=== PATIENT | male | born 1955 | race Caucasian/White ===

== ENCOUNTER 2018-07-02 19:56 | Emergency (ER) | payer OTHER, SELFPAY ==
[2018-07-02 19:58] VITALS: BP 149/102; PULSE 98; RESP 16; TEMP 36.6; O2SAT 99; BMI 31.6
--- NOTE | 2018-07-02 20:59 | ED.RN ---
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
--- NOTE | 2018-07-02 21:01 | CT_ITS ---
STUDY: CT BRAIN WITHOUT CONTRAST REASON FOR EXAM: Male, 63 years old. Headache, suicidal ideations. RADIATION DOSAGE (If Supplied By Facility): CTDIvol = ( 44.99 ) mGy, DLP = ( 812.98 ) mGycm TECHNIQUE: Transaxial CT imaging of the brain was performed without administration of intravenous contrast material. Individualized dose optimization techniques were used for this CT. COMPARISON: Noncontrast CT brain July 03, 2015. FINDINGS: Soft tissue densities in the occipital scalp are again noted, the largest measuring 15.5 x 11.5 x 16.5 mm. These may be sebaceous cyst or other soft tissue lesions. Normal calvarium. There is borderline cerebral atrophy with slight widening of the extra-axial spaces and ventricular dilatation. There are subtle areas of decreased attenuation within the white matter tracts of the supratentorial brain, consistent with microvascular disease changes. Normal basal ganglia and thalami. Focal low density in the medial left juncture of the midbrain and silke (series 2 image 16) may be an old lacunar infarct or volume averaging artifact. Normal cerebellum. There is no intracranial hemorrhage. There are no findings of an acute ischemic infarction. Normal visualized paranasal sinuses. There are are small accumulations of cerumen in the bilateral external auditory canals. CT/Brain/Head without Contrast IMPRESSION: Chronic microvascular ischemic changes of the brain. No acute intracranial pathology. Electronically Signed: Bakari Vaughn MD at 21:59 EDT , Service support ,
[2018-07-02] MEDS: Acetaminophen 325 MG Tablet 650 MG PO (21:16)
[2018-07-02] MEDS: LORazepam 1 MG Tablet PO (21:16)
[2018-07-02 21:20] LABS: Absolute Lymphocyte Count 1.39 X10^3/ul (0.83-4.51); Absolute Neutrophil Count 3.7 X10^3/uL (2.0-7.7); Basophil# 0.03 X10^3/uL; Basophil% 0.5 % (0-1); Eosinophils% 1.7 % (0-5); Hemoglobin 15.3 g/dl (13.0-16.5); Lymphocyte # 1.39 X10^3/ul (4.0); Lymphocyte % 23.8 % (19-41); Mean Corp Hgb Conc 35.6 g/gl (32-36); Mean Corpuscular Hgb 29.8 pg (27.0-32.0); Mean Corpuscular Volume 83.8 fL (80-94); Mean Platelet Vol. 12.2 fl (6.2-12.0); Monocyte# 0.61 X10^3/uL; Monocyte% 10.4 % (0-10); Neutrophil % 63.4 % (47-70); Platelet Count 214 K/mm3 (150-450); RBC Distribution Width CV 14.8 % (11.6-14.6); Red Blood Count 5.13 M/mm3 (4.6-6.2); White Blood Count 5.8 K/mm3 (4.4-11.0)
[2018-07-02 21:22] LABS: POSITIVE COUNT NO; POSITIVE DIFFERENTIAL NO; POSITIVE MORPHOLOGY NO
[2018-07-02 21:30] LABS: Alcohol, Blood (Medical)-Serum < 3.0 mg/dL
[2018-07-02 21:34] LABS: Anion Gap 5 (5-15); BUN 14 mg/dL (7-18); Calcium,Total 8.7 mg/dL (8.5-10.1); Chloride 110 mmol/L (98-107); Creatinine, Serum 0.88 mg/dL (0.70-1.30); EST Glomerular Filtration Rate 93 mL/min (>60); Est Glom Filt Rate - Afr Amer 112 mL/min (>60); Estimated Creatinine Clearance 78.24 ml/min; Glucose 108 mg/dL (74-106); Potassium 4.8 mmol/L (3.5-5.1); Sodium Level 140 mmol/L (136-145)
[2018-07-02 22:25] VITALS: BP 145/74; PULSE 81; RESP 18; O2SAT 100
[2018-07-02 23:04] VITALS: BP 134/73; PULSE 81; RESP 18; O2SAT 97
[2018-07-02 23:16] LABS: Amphetamine Urine VISTA NEGATIVE (<1000 ng/mL); Barbiturate Urine VISTA NEGATIVE (< 200 ng/mL); Benzodiazepine Urine VISTA NEGATIVE (< 200 ng/mL); Cocaine Urine VISTA NEGATIVE (< 300 ng/mL); Ecstacy Urine VISTA NEGATIVE (< 500 ng/mL); Methadone Urine VISTA NEGATIVE (< 300 ng/mL); PCP Urine VISTA NEGATIVE (< 25 ng/mL); THC Urine VISTA NEGATIVE (< 50 ng/mL); Vista UDS pH Range 6
--- NOTE | 2018-07-02 23:28 | ED.DCSUM_ITS ---
- ER Visit Summary Date of Service: 07/02/18 Chief Complaint: Suicidal History of Present Illness: The patient is a 63 M who reports he may be evicted from his home for having a certain pet. He states that this happens he feels he may hurt himself. He has thought about jumping in front of a moving vehicle, jumping from a building, or taking pills as an overdose. Patient states these feelings have been ongoing for the last week or so. He denies any prior attempts to harm himself. [facility] past as well as by a psychiatrist through the [facility]. Physical Examination: Vital signs gross unremarkable. Patient sitting upright in bed. He is intermittently tearful. Head neck examination unremarkable. Heart is regular rate and rhythm. Lung sounds are clear. Abdomen is soft nontender. Psychiatric evaluation reveals suicidal thoughts. He is depressed with a flat affect. Test Results: CBC is normal. Chemistry studies unremarkable. EtOH and tox normal. Head CT shows chronic microvascular ischemic changes. No evidence of acute pathology. Emergency Department Course and Treatment: Patient is given a dose of p.o. Ativan and a nicotine patch. He is given Tylenol for headache. At this time we are awaiting evaluation by crisis. Treatment Plan: [] Disposition: Pending crisis eval. Impression: 1. Suicidal ideation This note was generated with [employer] dictation software. It may contain incorrect words, spelling, and punctuation that were not noted in review of the chart prior to signing ED Disposition - Plan for ED Patient: Chief Complaint: Suicidal Referrals: Nik Shaw MD [Primary Care Provider] -
[2018-07-02] MEDS: Atorvastatin Calcium 20 MG Tablet PO (23:50)
[2018-07-02] MEDS: Amitriptyline 25 MG Tablet PO (23:50)
[2018-07-03] VITALS (8 sets, daily range): BP systolic 140–170; BP diastolic 72–80; PULSE 68–76; RESP 16–18; O2SAT 96–100
--- NOTE | 2018-07-03 03:53 | EKG12_ITS ---
Test Reason : MENTAL HEALTH Blood Pressure : / mmHG Vent. Rate : 066 BPM Atrial Rate : 066 BPM P-R Int : 144 ms QRS Dur : 090 ms QT Int : 404 ms P-R-T Axes : 024 -07 036 degrees QTc Int : 423 ms Normal sinus rhythm Minimal voltage criteria for LVH, may be normal variant Borderline ECG Confirmed by BARRETT CARRINGTON, CHRISTIE ([id number]), business editor PHIL ARANDA ([id number]) on 07/05/2018 1:26:09 PM Referred By: TAL Confirmed By:CHRISTIE HYDE MD
[2018-07-03] MEDS: Acetaminophen 500 MG Tablet 1000 MG PO (03:57)
[2018-07-03 04:19] LABS: Color, Urine Yellow (Yellow); Glucose, Dipstick Normal (Normal); Ketone-Dipstick 5 mg/dl (Negative); Leukocyte Esterase-Dipstick Negative /ul (Negative); Nitrite-Dipstick Negative (Negative); Occult Blood-Urine Negative /ul (Negative); Protein-Dipstick Negative (Negative); Urine Bilirubin Dipstick Negative (Negative); Urine Clarity Clear (Clear); Urine Urobilinogen Normal (Normal)
[2018-07-03 04:20] LABS: Bacteria 0 SEEN /hpf (None Seen); Mucous, Urine 0 SEEN /hpf (<or=2+); Red Blood Cells-Urine 0 SEEN /hpf (0-5); Squamous Epithelial Cells - UA 0 SEEN /hpf (0-5); White Blood Cells 0 SEEN /hpf (0-5)
[2018-07-03 04:35] LABS: AST(SGOT) 49 U/L (15-37); Alanine Aminotransfer ALT/SGPT 36 U/L (16-61); Albumin, Serum 3.7 g/dL (3.2-5.0); Alkaline Phosphatase 84 U/L (45-117); Globulin 3.3 g/dL (2.2-4.2)
[2018-07-03] MEDS: Acetaminophen 325 MG Tablet 650 MG PO (09:50)
--- NOTE | 2018-07-03 10:07 | ED.RN ---
ARIAS EARLY WITH CRISIS PATIENT HAS BEEN ACCEPTED AT [facility], THEY DO HAVE A BED BUT NOT ENOUGH STAFF. THEY WILL CALL WHEN THEY ARE READY FOR HIM.
--- NOTE | 2018-07-03 11:40 | ED.RN ---
NIMO AT [facility] WE ARE ALMOST READY BUT NOT QUITE YET, WE WILL GIVE YOU A CALL SHORTLY
== END 2018-07-03 13:42 ==
PROVIDERS: Emergency Medicine; Emergency Provider Emergency Medicine; Family Provider Family Medicine; PCP Family Medicine
DX: R45.851 Suicidal ideations (principal); J45.909 Unspecified asthma, uncomplicated; F41.9 Anxiety disorder, unspecified; F32.9 Major depressive disorder, single episode, unspecified; K21.9 Gastro-esophageal reflux disease without esophagitis; E03.9 Hypothyroidism, unspecified; Z86.73 Personal history of transient ischemic attack (TIA), and cerebral infarction without residual deficits; Z79.02 Long term (current) use of antithrombotics/antiplatelets; Z79.899 Other long term (current) drug therapy; Z72.0 Tobacco use
CPT/HCPCS: 70450; 80048; 80076; 80307; 80320; 81001; 85025; 93005; 99285; A4216; G0480

== ENCOUNTER → 2020-04-16 08:59 | Outpatient (CLI) | payer OTHER, SELFPAY ==
--- NOTE | 2020-04-16 09:10 | RAD_ITS ---
STUDY: X-RAY - ESOPHAGUS (BARIUM SWALLOW) WITH FLUOROSCOPY REASON FOR EXAM: Male, 65 years old. 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 FLUOROSCOPY TIME (if supplied): (1:44) minutes/seconds COMPARISON: None. FINDINGS: There is no demonstrated esophageal foreign body. There is evidence of a fungating mass in the hypopharynx just proximal to the origin of the esophagus. There is evidence of a prominence of the cricopharyngeus muscle. Normal gastroesophageal junction, without a demonstrated hiatal hernia. The patient was unable to swallow a 12 mm tablet of barium. Endoscopic correlation is recommended. There is atherosclerotic tortuosity of the aortic arch and descending thoracic aorta. Normal visualized pulmonary parenchyma. Normal visualized osseous structures of the thorax. RAD/Esophagus Dual Contrast IMPRESSION: I suspect a fungating mass in the distal hypopharynx just proximal to the origin of the esophagus. The patient was unable to swallow a 12 mm tablet of barium. Electronically Signed: Red Sykes, at 13:15 EDT , Service support ,
== END ==
LOC: RAD 09:03
PROVIDERS: PCP Family Medicine; Referring Provider Otolaryngology; Visit Provider Otolaryngology
DX: R13.10 Dysphagia, unspecified (principal)
CPT/HCPCS: 74221

== ENCOUNTER → 2020-04-24 08:22 | Outpatient (CLI) | payer OTHER, SELFPAY ==
--- NOTE | 2020-04-24 08:27 | CT_ITS ---
STUDY: CT SOFT TISSUE NECK WITH CONTRAST REASON FOR EXAM: Male, 65 years old. ESOPHAGEAL MASS, DIFFICULTY SWALLOWING, HX TONSILAR CANCER RADIATION DOSAGE (If Supplied By Facility): CTDIvol = ( 23.59 ) mGy, DLP = ( 993.95 ) mGycm TECHNIQUE: The patient was scanned in a multi-detector CT scanner. High resolution transaxial imaging was performed following intravenous administration of IV 75mL Isovue-370. Sagittal and coronal images were reconstructed. Individualized dose optimization techniques were used for this CT. COMPARISON: Comparison is made with prior study dated 08/14/2013. FINDINGS: There is circumferential wall thickening at the origin of the esophagus with narrowing of the lumen. Normal bilateral parotid glands. 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 Normal bilateral parapharyngeal spaces. Normal bilateral carotid spaces. Normal bilateral sublingual and submandibular glands and spaces. Normal visualized nasopharynx. Normal retropharyngeal space. Normal perivertebral space. Normal visualized bilateral faucial tonsils. The visualized tongue, tongue base and oropharynx are normal. There are minimally enlarged lymph nodes of the neck, with preservation of normal lucero architecture, consistent with a reactive lymph hyperplasia. There is no demonstrated solid or cystic mass lesion. There is no abnormal contrast enhancement. Normal epiglottis, bilateral vallecula and hypopharynx. The pre-epiglottic and paraglottic adipose spaces are normal. Normal visualized bilateral piriform sinuses, aryepiglottic folds, vocal cords, and arytenoid-cricoid articulations. Normal subglottic trachea. Normal bilateral lobes of the thyroid gland. Normal visualized pulmonary apices. Normal visualized paranasal sinuses. There is multilevel degenerative changes of the cervical spine. CT/Soft Tissue Neck WITH Contrast IMPRESSION: Circumferential wall thickening of the esophagus at its origin with narrowing of its lumen. Electronically Signed: Red Sykes, at 10:06 EDT , Service support ,
[2020-04-24 08:56] LABS: CREATININE FINGERSTICK 0.8 mg/dL (0.70-1.30)
== END ==
LOC: CT 08:22
PROVIDERS: PCP Family Medicine; Referring Provider Otolaryngology; Visit Provider Otolaryngology
DX: K22.9 Disease of esophagus, unspecified (principal)
CPT/HCPCS: 70491; Q9967

== ENCOUNTER 2021-07-14 19:11 | Emergency (ER) | payer OTHER, SELFPAY ==
[2021-07-14 19:12] VITALS: BP 199/93; PULSE 96; RESP 15; TEMP 36.6; O2SAT 100; BMI 25.3
[2021-07-14 20:07] LABS: Absolute Lymphocyte Count 0.22 X10^3/uL (0.83-4.51); Absolute Neutrophil Count 5.8 X10^3/uL (2.0-7.7); Basophil# 0.03 X10^3/uL; Basophil% 0.5 % (0-1); Eosinophils% 1.6 % (0-5); Hematocrit 33.5 % (40-54); Hemoglobin 10.5 g/dL (13.0-16.5); Lymphocyte # 0.22 X10^3/ul (0.83-4.51); Lymphocyte % 3.5 % (19-41); Mean Corp Hgb Conc 31.3 g/dL (32-36); Mean Corpuscular Hgb 25.2 pg (27.0-32.0); Mean Corpuscular Volume 80.3 fL (80-94); Mean Platelet Vol. 10.4 fl (6.2-12.0); Monocyte# 0.03 X10^3/uL; Monocyte% 0.5 % (0-10); NRBC Flagged by Analyzer 0 % (0-5); Neutrophil # 5.83 X10^3/uL (2.7-7.7); Neutrophil % 93.7 % (47-70); POSITIVE DIFFERENTIAL YES; POSITIVE MORPHOLOGY YES; Platelet Count 452 K/mm3 (150-450); RBC Distribution Width CV 15.9 % (11.6-14.6); RBC Distribution Width SD 46.1 fl (35.1-43.9); Red Blood Count 4.17 M/mm3 (4.6-6.2); White Blood Count 6.2 K/mm3 (4.4-11.0)
[2021-07-14 20:15] LABS: Differential Indicated SCAN CRITERIA MET
--- NOTE | 2021-07-14 20:19 | CT_ITS ---
INDICATION: abd pain post op EXAMINATION: CT ABDOMEN AND PELVIS WITH CONTRAST - CT Abdomen And Pelvis W/ Contrast Injection TECHNIQUE: Helically acquired images were obtained of the abdomen and pelvis following IV contrast. A radiation dose optimization technique was used for this scan. IV Contrast dosage and agent: 100 mL of ISOVUE-370 Oral contrast: None. COMPARISON: Chest x-ray 07/14/2021 FINDINGS: LOWER CHEST: Early paraseptal emphysematous changes are suggested. No cardiomegaly or pericardial effusion. LIVER: Homogeneous. No focal mass. GALLBLADDER AND BILIARY TREE: No calcified gallstones. No gallbladder distension or wall edema. No intra- or extrahepatic biliary ductal dilation. PANCREAS: No focal cystic or solid mass. Mild fatty replacement. SPLEEN: Normal size without focal cystic or solid mass. ADRENAL GLANDS: No nodules. KIDNEYS AND URETERS: Normal renal size and position. Mild dilation and mural enhancement mid distal ureters, left greater than right. There is also mild bilateral caliectasis, right greater than left. Subcentimeter hypodensity is seen in the right upper pole and right mid kidney. This is too small to coffee-like characterize however most likely represents a cyst. PERITONEUM: No ascites or free air. No other fluid collection. BOWEL: No evidence of acute appendicitis. Stomach is mildly distended with fluid. There is a roughly 1 cm oval-shaped calcification in the posterior dependent aspect of the stomach body versus potentially within the stomach wall. No focal inflammatory change. LYMPH NODES: No enlarged mesenteric or retroperitoneal lymph nodes. VESSELS: Moderate atherosclerotic changes abdominal aorta with mild narrowing from next soft tissue and calcified plaque distal abdominal aorta and proximal iliac vessels. The right external iliac artery is unopacified for a roughly 5 cm segment likely representing URINARY BLADDER: There is a BARNES catheter. Bladder shows irregular mural thickening and surrounding stranding density and a small amount of fluid in the pelvis. The stranding density is most notable adjacent to the left ureter the level of the origin of the internal iliac arteries. REPRODUCTIVE ORGANS: No pelvic masses. ABDOMINAL WALL: Air skin thickening left lower abdomen anterior abdominal wall may represent possible mass. Clinical correlation is recommended. Focal area of subcutaneous fat stranding density adjacent to the umbilicus and right and left lower abdomen may represent trocar sites for laparoscopic surgery. Correlate clinically. Bilateral, moderate-sized, fat filled inguinal hernias are present. BONES: No lytic or blastic abnormality. Left pectineus intramuscular mass lesion showing both fat and soft tissue density. Circumscribed lesion with mostly nonaggressive appearance. CT/Abdomen/Pelvis W IV Cont ONLY IMPRESSION: Occluded right external iliac artery. Reconstitution of flow femoral artery. Abnormal bladder wall thickening and hazy margins with adjacent inflammatory changes. Scarlike stranding density on the course of the left ureter at the level of the left internal iliac artery. Mild bilateral hydronephrosis and some mural enhancement of the ureters suggesting infectious or inflammatory changes. Early emphysematous changes seen in the lung bases. Oval-shaped hyperdensity in the dependent aspect of the stomach is less likely in the stomach wall. Postsurgical changes anterior, abdominal wall. Areas of oval-shaped skin thickening suspicious for possible mass left lower quadrant. Bilateral inguinal hernias. Left pectineus muscle fatty mass but also with apparent hypodense, solid component. This may represent a cystic component. Given this complexity. Comparison with MRI is recommended. Electronically Signed: Dominick Campos DO at 22:08 EDT Tel , Service support ,
--- NOTE | 2021-07-14 20:19 | EKG12_ITS ---
Test Reason : ABD PAIN Blood Pressure : / mmHG Vent. Rate : 117 BPM Atrial Rate : 117 BPM P-R Int : 128 ms QRS Dur : 078 ms QT Int : 348 ms P-R-T Axes : 039 027 038 degrees QTc Int : 485 ms Sinus tachycardia Nonspecific ST-Segment abnomality Confirmed by BARRETT CARRINGTON, CHRISTIE ([id number]), proposal editor SHEY ROJAS ([id number]) on 07/16/2021 8:58:20 AM Referred By: JAC Confirmed By:CHRISTIE HYDE MD
[2021-07-14 20:24] LABS: ALB/GLOB Ratio 0.9 RATIO (0.9-2.4); AST(SGOT) 13 U/L (15-37); Alanine Aminotransfer ALT/SGPT 18 U/L (16-61); Albumin, Serum 3.5 g/dL (3.2-5.0); Alkaline Phosphatase 131 U/L (45-117); Anion Gap 7 (5-15); BUN 18 mg/dL (7-18); BUN/Creat Ratio 15.7 RATIO (10-20); Calcium,Total 9.3 mg/dL (8.5-10.1); Chloride 109 mmol/L (98-107); Creatinine, Serum 1.15 mg/dL (0.70-1.30); EST Glomerular Filtration Rate 67 mL/min (>60); Est Glom Filt Rate - Afr Amer 81 mL/min (>60); Estimated Creatinine Clearance 57.48 ml/min; Globulin 3.9 g/dL (2.2-4.2); Glucose 140 mg/dL (74-106); Potassium 3.6 mmol/L (3.5-5.1); Protein, Total 7.4 g/dL (6.4-8.2); Sodium Level 141 mmol/L (136-145)
--- NOTE | 2021-07-14 20:24 | EDS_ITS ---
HPI History of Present Illness Chief Complaint: Abd Pain Informant: patient and spouse/S.O. Narrative Narrative: It is a little hard to get the details of what is going on from the patient. His states he is a little bit confused. This does make the evaluation difficult. The below summary is the best of the details that I am able to obtain. This patient has had about 2 days of not feeling well. It sounds like he feels chilled but has not had a fever. He has some back pain but he states that is chronic and is worse depending on how he lays. He has some mild abdominal discomfort but he is not sure where it is. He has had new hematuria in his Lambert. It sounds like he has not had a cough. He has not had chest pain. He has had decreased appetite and now vomited evidently today. No blood. Patient did just have surgery 2 weeks ago for prostatectomy. This was done through laparoscopy. It evidently went well. He has had a catheter in ever since. He was due to have the catheter out tomorrow. Nothing specifically makes his symptoms better or worse. His states that he is a little confused and thinks he has been having fevers. PFSH PFSH Home Medications clopidogrel 75 mg PO DAILY 03/30/15 [History Last Taken Unknown] fluticasone propionate 2 spray NASAL DAILY 03/30/15 [History Last Taken Unknown] lorazepam 0.5 mg PO Q6H PRN 03/30/15 [History Last Taken Unknown] meloxicam 15 mg PO DAILY 03/30/15 [History Last Taken Unknown] multivitamin with folic acid [Thera] 1 tab PO DAILY 03/30/15 [History Last Taken Unknown] polyethylene glycol 3350 17 g PO DAILY 03/30/15 [History Last Taken Unknown] Levothyroxine Sodium 112 mcg PO DAILY 07/02/18 [History Last Taken Unknown] amitriptyline 1 tab PO DAILY 07/02/18 [History Last Taken Unknown] omeprazole 20 mg PO DAILY 07/02/18 [History Last Taken Unknown] oxybutynin chloride [Ditropan XL] 1 tab PO DAILY 07/02/18 [History Last Taken Unknown] simvastatin 1 tab PO DAILY 07/02/18 [History Last Taken Unknown] docusate sodium [Colace] 50 mg PO BID 07/14/21 [History Last Taken Unknown] Allergy/AdvReac Type Severity Reaction Status Date / Time bupropion HCl AdvReac Unknown Verified 07/14/21 19:15 [From Wellbutrin] Penicillins AdvReac Rash Verified 07/14/21 19:15 Sulfa (Sulfonamide AdvReac Rash Verified 07/14/21 19:15 Antibiotics) Social History Smoking Status: Current every day smoker tobacco type: cigarettes ROS ROS ED Constitutional Constitutional ED: Reports subjective Eyes Eyes: Denies blurry vision or change in vision ENT ENT ED: Denies ear pain, rhinorrhea or sore throat Cardiovascular Cardiovascular: Denies chest pain or palpitations Respiratory/Chest Respiratory/Chest: Denies cough, dyspnea or sputum Gastrointestinal Gastrointestinal: Reports abdominal pain, nausea, vomiting and other Details: Triage note mentions constipation and frequent bowel motions but patient's not saying this at this time. This might be due to some mild confusion. He ; Denies constipation, diarrhea or melena Genitourinary Genitourinary ED: Reports hematuria; Denies dysuria Musculoskeletal Musculoskeletal: Reports myalgias Integumentary Denies rash Neurologic Neurologic: Reports other Details: Mild global confusion. However, when he focuses he is able to tell me most of his meds and past history a piece at a time. ; Denies headache(s), paresthesias or weakness Psychiatric Psychiatric: Denies anxiety Endocrine Endocrinology: Denies polydipsia or polyuria Allergic/Immunologic Allergic/Immunologic ED: Denies mouth swelling or urticaria EXAM Physical Exam Const Vital Signs: 07/14/21 19:12 07/14/21 20:48 07/14/21 21:56 Temperature 97.8 F 99.3 F H 99.1 F Temperature Source Temporal Oral Temporal Pulse Rate 96 110 H 74 Respiratory Rate 15 22 H 17 Blood Pressure 199/93 H 136/50 H 165/69 H Blood Pressure Mean 128 78 101 Pulse Ox 100 98 98 Oxygen Delivery Method Room Air Room Air Room Air 07/14/21 22:02 07/14/21 22:50 Temperature 100.7 F H Temperature Source Oral Pulse Rate 112 H Respiratory Rate 27 H 24 H Blood Pressure 153/72 H Blood Pressure Mean 99 Pulse Ox 97 Oxygen Delivery Method Room Air Patient looks mildly agitated. He states he is cold. Even during the exam he will pull the blankets up while examining him. We are able to get a decent exam though. He is alert and oriented. But he has little trouble focusing. He seems uncomfortable. He does seem to be chilling but does not feel warm to me. Positive well nourished and well developed General Appearance ED: well developed HEENT Reports dry mucous membranes Negative for trauma Mouth ED: Yes dry mucous membranes Mouth: dry mucous membranes Eyes General Eye ED: Negative for pale conjunctiva or scleral icterus Neck no JVD Chest Wall inspection of chest normal Resp normal respiratory effort and clear to auscultation bilaterally Auscultation: Negative for rales, rhonchi or wheezes Cardio regular rate, regular rhythm and no murmurs GI GI Narrative: Abdomen is soft nontender. Prior scope sites look well-healed. Abdomen seems almost a little bit distended. There is no focal tenderness that I can get on exam. Lambert is in place. Narrative: Lambert is in place. There is blood in his catheter bag. I do not see clots. Back/Spine Negative for no CVA tenderness Back/Spine Narrative: I tried to localize the pain on the patient's back but he just cannot tell me where it is. I tried to tell him if it is higher or lower than I am touching and he states he is just not sure. He does ask for a pillow because that usually helps his back. General Back: Negative for CVA tenderness Extremity normal to inspection General Extremety ED: Negative for tenderness Neuro oriented x3 Neuro Narrative: He is technically oriented x3. However he does seem preoccupied and not focused well. This might be due to discomfort or the chills. Sensorium / Orientation: alert Skin no rashes or lesions noted MDM MDM MDM Narrative Medical decision making narrative: Patient's white count is not elevated. His hemoglobin is a bit low at 10.5. However he just had surgery recently. His catheter is irrigated. It is coming out pink but much better. No gross blood now. Electrolytes show normal creatinine. Glucose is slightly elevated 140. LFTs show no marked abnormalities. Troponin is negative. Lipase is normal. Lactate is 2.0. Urine does show strong signs of infection. It is cloudy with greater 100 white cells. Positive leukocyte Estrace. CT scan of the abdomen does show signs of inflammatory changes around the bladder and the ureter mostly on the left. This is consistent with Luis. It also shows an area in the left lower quadrant but clinically he has a small lump of the tissue there that does not look infected or inflamed or herniated. X-ray of the chest is negative. This patient does feel febrile now. He has some mild confusion per his . He has had nausea and vomiting. I do not think this is a patient who would do well as an outpatient. I have hospitalist on page to discuss the possibility of admitting him here. We are giving him a bit more fluids. His blood pressure is good but his heart rate is up at about 110. Saturations are still normal at 98% on room air. We discussed the possibility of coming in here. The concern is were not having urology coverage at this time. Patient also was postop from [facility]. I did call [facility]. It sounds like they likely do have a bed available. We have sent information to them. I have given them the history, presentation, exam, labs, CT findings as well as x-ray. We have sent a facesheet to them. I am awaiting a call back for admission. Patient is excepted to room 5107 at [facility] by Dr. Olivier Mendez. Lab Data Attestation: I reviewed the patient's lab results. Labs: Laboratory Results - last 24 hr 07/14/21 07/14/21 07/14/21 19:54 19:54 20:49 WBC 6.2 RBC 4.17 L Hgb 10.5 L Hct 33.5 L MCV 80.3 MCH 25.2 L MCHC 31.3 L RDW Std Deviation 46.1 H RDW Coeff of Evelyn 15.9 H Plt Count 452 H MPV 10.4 Immature Gran % (Auto) 0.200 Neut % (Auto) 93.7 H Lymph % (Auto) 3.5 L Adams % (Auto) 0.5 Eos % (Auto) 1.6 Baso % (Auto) 0.5 Absolute Neuts (auto) 5.8 Absolute Lymphs (auto) 0.22 L Nucleated RBC % 0 Differential Comment SCANNED Sodium 141 Potassium 3.6 Chloride 109 H Carbon Dioxide 25.0 Anion Gap 7 BUN 18 Creatinine 1.15 Estim Creat Clear Calc 57.48 Est GFR (MDRD) Af Amer 81 Est GFR (MDRD) Non-Af 67 BUN/Creatinine Ratio 15.7 Glucose 140 H Lactic Acid Calcium 9.3 Total Bilirubin 0.40 AST 13 L ALT 18 Alkaline Phosphatase 131 H Troponin I High Sens 5 Total Protein 7.4 Albumin 3.5 Globulin 3.9 Albumin/Globulin Ratio 0.9 Lipase 66 L Urine Color Urine Clarity Urine pH Ur Specific [place] Urine Protein Urine Glucose (UA) Urine Ketones Urine Occult Blood Urine Nitrite Urine Bilirubin Urine Urobilinogen Ur Leukocyte Esterase Urine RBC Urine WBC Ur Squamous Epith Cells Urine Bacteria Urine Mucus 07/14/21 07/14/21 20:49 21:38 WBC RBC Hgb Hct MCV MCH MCHC RDW Std Deviation RDW Coeff of Evelyn Plt Count MPV Immature Gran % (Auto) Neut % (Auto) Lymph % (Auto) Adams % (Auto) Eos % (Auto) Baso % (Auto) Absolute Neuts (auto) Absolute Lymphs (auto) Nucleated RBC % Differential Comment Sodium Potassium Chloride Carbon Dioxide Anion Gap BUN Creatinine Estim Creat Clear Calc Est GFR (MDRD) Af Amer Est GFR (MDRD) Non-Af BUN/Creatinine Ratio Glucose Lactic Acid 2.0 Calcium Total Bilirubin AST ALT Alkaline Phosphatase Troponin I High Sens Total Protein Albumin Globulin Albumin/Globulin Ratio Lipase Urine Color Brown Urine Clarity Cloudy Urine pH 6.5 Ur Specific [place] 1.015 Urine Protein 500 H Urine Glucose (UA) Normal Urine Ketones 15 H Urine Occult Blood 250 H Urine Nitrite Negative Urine Bilirubin Negative Urine Urobilinogen Normal Ur Leukocyte Esterase 500 H Urine RBC > 100 SEEN Urine WBC >100 SEEN Ur Squamous Epith Cells 0 SEEN Urine Bacteria 0 SEEN Urine Mucus 0 SEEN Radiography Diagnostic Testing: Clinical Impression(s) from Imaging Studies Abdomen/Pelvis CT 07/14/21 20:19 IMPRESSION: Occluded right external iliac artery. Reconstitution of flow femoral artery. Abnormal bladder wall thickening and hazy margins with adjacent inflammatory changes. Scarlike stranding density on the course of the left ureter at the level of the left internal iliac artery. Mild bilateral hydronephrosis and some mural enhancement of the ureters suggesting infectious or inflammatory changes. Early emphysematous changes seen in the lung bases. Oval-shaped hyperdensity in the dependent aspect of the stomach is less likely in the stomach wall. Postsurgical changes anterior, abdominal wall. Areas of oval-shaped skin thickening suspicious for possible mass left lower quadrant. Bilateral inguinal hernias. Left pectineus muscle fatty mass but also with apparent hypodense, solid component. This may represent a cystic component. Given this complexity. Comparison with MRI is recommended. Electronically Signed: Dominick Campos DO at 22:08 EDT Tel , Service support , Chest X-Ray 07/14/21 20:30 IMPRESSION: Normal x-ray examination of the chest. Electronically Signed: Michael Hassan MD at 21:04 EDT Tel , Service support , EKG Initial EKG: Comments: EKG done as part of medical work-up and mild tachycardia. EKG read by me shows a sinus rhythm with tachycardic rate. No ventricular ectopy. There is some mild nonspecific ST and T wave changes. No sign of infarct or ischemia. MD interval, QRS duration are normal. QTc is toward the high end at 45. Discharge Plan Triage Chief Complaint: Abd Pain ED Provider: Kyree Peterson Dx/Rx/DC Orders Clinical Impression: Pyelonephritis Prescriptions: No Action polyethylene glycol 3350 17 GM powder in packet 17 g PO DAILY RF: 0 meloxicam 15 MG tablet 15 mg PO DAILY RF: 0 clopidogrel 75 MG tablet 75 mg PO DAILY RF: 0 lorazepam 0.5 MG tablet 0.5 mg PO Q6H PRN (Reason: Anxiety) RF: 0 fluticasone propionate 1 SPRAY spray,suspension 2 spray NASAL DAILY RF: 0 multivitamin with folic acid [Thera] 1 TABLET tablet 1 tab PO DAILY RF: 0 oxybutynin chloride [Ditropan XL] 10 MG tablet extended release 24hr 1 tab PO DAILY RF: 0 simvastatin 80 MG tablet 1 tab PO DAILY RF: 0 amitriptyline 25 MG tablet 1 tab PO DAILY RF: 0 omeprazole 20 MG capsule 20 mg PO DAILY RF: 0 Levothyroxine Sodium 112 MCG tablet 112 mcg PO DAILY RF: 0 Colace 50 mg Capsule 50 mg PO BID RF: 0 Primary Care Provider: Nik Shaw Referrals: Nik Shaw MD [Primary Care Provider] -
--- NOTE | 2021-07-14 20:30 | RAD_ITS ---
STUDY: X-RAY CHEST REASON FOR EXAM: Male, 66 years old. fever TECHNIQUE: Frontal portable view of the chest COMPARISON: 17 December 2015 FINDINGS: The lungs are clear and expanded. There is no demonstrated pleural abnormality. Normal size heart. Normal mediastinum and enrico. Normal visualized pulmonary arteries. Normal visualized aortic arch and descending thoracic aorta. Normal visualized thoracic spine. Normal visualized ribs, clavicles, and shoulders. There is no demonstrated abnormality of the visualized soft tissue structures of the upper abdomen. RAD/Chest 1 View (Portable) IMPRESSION: Normal x-ray examination of the chest. Electronically Signed: Michael Hassan MD at 21:04 EDT Tel , Service support ,
[2021-07-14] MEDS: Morphine 4 MG/ML Syringe IV (20:43)
[2021-07-14] MEDS: 0.9% Normal Saline 1,000 ML 1000 ML IV (20:43)
[2021-07-14] MEDS: Ondansetron 4 MG/2 ML Vial IV (20:43)
[2021-07-14 20:48] VITALS: BP 136/50; PULSE 110; RESP 22; TEMP 37.4; O2SAT 97; O2SAT 98
[2021-07-14] MEDS: levoFLOXacin IV 750 MG/150 ML BAG 100 MG IV (20:48)
[2021-07-14 20:49] LABS: Differential Comment SCANNED
[2021-07-14 21:28] LABS: Lipase 66 U/L (73-393); Troponin-I HS 5 pg/mL (3.0-78.0)
[2021-07-14 21:49] LABS: Bacteria 0 SEEN /hpf (None Seen); Mucous, Urine 0 SEEN /hpf (<or=2+); Squamous Epithelial Cells - UA 0 SEEN /hpf (0-5)
[2021-07-14 21:52] LABS: Color, Urine Brown (Yellow); Glucose, Dipstick Normal (Normal); Ketone-Dipstick 15 mg/dl (Negative); Leukocyte Esterase-Dipstick 500 /ul (Negative); Nitrite-Dipstick Negative (Negative); Occult Blood-Urine 250 /ul (Negative); Protein-Dipstick 500 mg/dl (Negative); Specific Gravity, Urine 1.015 (1.002-1.030); Urine Bilirubin Dipstick Negative (Negative); Urine Clarity Cloudy (Clear); Urine Urobilinogen Normal (Normal); Urine pH 6.5 (5.0 - 8.0)
[2021-07-14 21:56] VITALS: BP 165/69; PULSE 74; RESP 17; TEMP 37.3; O2SAT 98
[2021-07-14 22:02] VITALS: RESP 27
[2021-07-14 22:03] LABS: Red Blood Cells-Urine > 100 SEEN /hpf (0-5); White Blood Cells >100 SEEN /hpf (0-5)
[2021-07-14] MEDS: 0.9% Normal Saline 1,000 ML 999 ML IV (22:49)
[2021-07-14 22:50] VITALS: BP 153/72; PULSE 112; RESP 24; TEMP 38.2; O2SAT 97
[2021-07-14] MEDS: Acetaminophen 500 MG Tablet 1000 MG PO (23:42)
[2021-07-14 23:56] VITALS: BP 118/62; PULSE 107; RESP 26; TEMP 38.2; O2SAT 97
[2021-07-15 00:54] LABS: Reflex Lactate? Y
--- NOTE | 2021-07-15 06:46 | ED.RN ---
RESULT OF POSITIVE BLOOD CULTURES CALLED TO [address] [place] [address] TO [facility]. THIS RESULT WAS FAXED TO FACILITY [phone]
== END 2021-07-15 00:05 ==
PROVIDERS: Emergency Provider Emergency Medicine; PCP Family Medicine
DX: N12 Tubulo-interstitial nephritis, not specified as acute or chronic (principal); Z96.0 Presence of urogenital implants; Z90.79 Acquired absence of other genital organ(s); F17.210 Nicotine dependence, cigarettes, uncomplicated
CPT/HCPCS: 71045; 74177; 80053; 81001; 83605; 83690; 84484; 85025; 87040; 87077; 87186; 87426; 93005; 96361; 96365; 96366; 96375; 99285; J7030; Q9967; A4216; J2405

== ENCOUNTER 2024-10-30 14:45 | Emergency (ER) | payer OTHER, SELFPAY ==
[2024-10-30 14:47] VITALS: BP 128/65; PULSE 90; RESP 16; TEMP 36.6; O2SAT 100
[2024-10-30 14:50] VITALS: BMI 28.6
[2024-10-30 16:00] VITALS: O2SAT 100
--- NOTE | 2024-10-30 16:13 | EDS_ITS ---
HPI History of Present Illness Chief Complaint: Cough PFSH [facility] Medical History (Updated 10/30/24 @ 15:58 by Grisel Bethea) High blood cholesterol GERD (gastroesophageal reflux disease) Depression Stroke Parkinsons disease Throat cancer Home Medications ?Medication ?Instructions ?Recorded ?Last Taken ?Type clopidogrel 75 mg tablet 75 mg PO DAILY 03/30/15 Unkn own History fluticasone propionate 50 2 spray DAILY 03/30/15 Unkno wn History mcg/actuation nasal spray,suspension lorazepam 0.5 mg tablet 0.5 mg PO Q6H PRN Anxiety Unknown History meloxicam 15 mg tablet 15 mg PO DAILY 03/30/15 Unkn own History multivitamin with folic acid 400 1 tab PO DAILY Unknown History mcg tablet (Thera) polyethylene glycol 3350 17 gram 17 g PO DAILY 5 Unknown History oral powder packet Levothyroxine Sodium 112 mcg PO DAILY 07/02/18 Un known History amitriptyline 25 mg tablet 1 tab PO DAILY 07/02/18 Unk nown History omeprazole 20 mg capsule,delayed 20 mg PO DAILY Unknown History release oxybutynin chloride 10 mg 1 tab PO DAILY 07/02/18 Unkn own History tablet,extended release 24 hr (Ditropan XL) simvastatin 80 mg tablet 1 tab PO DAILY 07/02/18 Unkn own History docusate sodium 50 mg capsule 50 mg PO BID 07/14/21 Un known History Allergy/AdvReac Type Severity Reaction Status Date / Time bupropion HCl (From AdvReac Unknown Verified 10/30/24 14:47 Wellbutrin) Penicillins AdvReac Rash Verified 10/30/24 14:47 Sulfa (Sulfonamide AdvReac Rash Verified 10/30/24 14:47 Antibiotics) Surgical History (Updated 10/30/24 @ 15:57 by Grisel Bethea) History of prostate surgery Social History Smoking Status: Heavy Smoker (>10/day) EXAM Physical Exam Const Vital Signs: 10/30/24 14:47 10/30/24 16:00 10/30/24 16:46 Temperature 98 F Temperature Source Oral Pulse Rate 90 84 Respiratory Rate 16 17 Respiratory Effort Normal Blood Pressure 128/65 H 161/77 H Blood Pressure Mean 86 105 Pulse Ox 100 96 Oxygen Delivery Method Room Air Room Air Room Air 10/30/24 18:00 Temperature Temperature Source Pulse Rate 64 Respiratory Rate 11 L Respiratory Effort Blood Pressure 170/82 H Blood Pressure Mean 111 Pulse Ox 99 Oxygen Delivery Method Room Air [facility] Narrative Medical decision making narrative: HISTORY OF PRESENT ILLNESS: 69-year-old male presents with concern for cough Patient notes he is been coughing a minor amount of bright red mucus for 2 days. Notes he has history of throat cancer radiation. He notes he has had chemo proximally 4 years ago. Denies chest pain, shortness of breath. Denies fever or chills. Denies feeling ill. Does note some pain in his throat that began 2 days ago as well. Denies any drooling, difficulty talking. Denies any neck pain or stiffness. REVIEW OF SYSTEMS: Pertinent positives: Cough, hemoptysis Pertinent negatives: Chest pain, leg swelling PHYSICAL EXAM: Nursing triage notes reviewed, Vital signs reviewed Constitutional: please see [facility] HENT: MMM Eyes: Pupils equal round and reactive to light, Extraocular muscles intact Neck: No stridor, no JVD, full neck ROM Lungs: Clear to auscultation, No wheezing or rales. No increased work of breathing, no conversational dyspnea, no accessory muscle use, no nasal flaring. No respiratory distress noted Heart: Regular rate and rhythm, No murmurs, No rubs and No gallops, 2+ distal pulses (radial, femoral, posterior tibial) in all extremities Abdomen: Soft, there is no tenderness, rigidity, rebound or guarding, no obvious peritoneal signs, no palpable pulsatile abdominal masses, no auscultated abdominal bruit : No CVAT Extremities: No edema Neuro: No new focal neurological deficits, cranial nerves II through XII intact, 5/5 strength in all present extremities. Intact sensation to light touch in all present extremities, 2+ reflexes bilateral patella tendons. Skin: No rash or lesions noted MEDICAL DECISION MAKING: Chief Complaint: Cough, hemoptysis External records reviewed: Reviewed allergies, reviewed prior imaging Factors affecting care: GERD, depression, CVA, Parkinson disease, throat cancer Social determinants of health: none History obtained from others: none Consults: none [facility] Narrative: Patient was initially hemodynamically stable, afebrile and nontoxic-appearing. Exam unremarkable. No stridor. I considered the following differential diagnosis: Mucosal irritation of the throat secondary to radiation-induced changes, ALL IMAGES (IF OBTAINED) HAVE BEEN PERSONALLY REVIEWED AND INTERPRETED BY MYSELF. CBC without leukocytosis, severe anemia, no thrombocytopenia. BMP without evidence of significant electrolyte abnormalities, no anion gap, no acute kidney injury. High-sensitivity troponin is negative, no evidence of myocardial ischemia EKG with normal sinus rhythm rate of 78, left ax deviation, no murmurs, no STEMI Strep swab negative CT of the chest negative for PE CTA of the neck negative for mass The cause of the patient's presentation is unclear. Could be mucosal irritation. No indication for admission at this time. Encourage close outpatient follow-up. The patient and/or family, caregivers express understanding. The patient and/or family, caregivers agrees with the plan. Shared decision making: I will have a discussion with the patient and or visitors regarding risk/benefits of further testing or admission. They will be made aware of of the risk/benefits inherent in this decision they will be given the opportunity to voice understanding. Total critical care time today provided was at least 0 minutes. This excludes separately billable procedures. Critical care time (if documented) is secondary to the patient having high probability of clinically significant/life threatening deterioration in the patient's condition which required my urgent intervention. Impression: 1. Hemoptysis 2. History of throat cancer Dispo: Discharge home This note was generated with [employer] dictation software. It may contain incorrect words, spelling, and punctuation that were not noted in review of the chart prior to signing. Lab Data Labs: Laboratory Results - last 24 hr 10/30/24 16:50 WBC 10.2 RBC 5.41 Hgb 15.6 Hct 46.5 MCV 86.0 MCH 28.8 MCHC 33.5 RDW Std Deviation 45.2 H RDW Coeff of Evelyn 14.5 Plt Count 264 MPV 10.4 Sodium 142 Potassium 3.7 Chloride 107 Carbon Dioxide 29.0 Anion Gap 5 BUN 19 H Creatinine 0.82 Estim Creat Clear Calc 85.10 Est GFR (MDRD) Af Amer 120 Est GFR (MDRD) Non-Af 99 BUN/Creatinine Ratio 23.3 H Glucose 85 Calcium 9.8 Troponin I High Sens 17 Radiography Diagnostic Testing: Clinical Impression(s) from Imaging Studies Chest CTA 10/30/24 17:14 IMPRESSION: 1. Mild diffuse emphysematous changes 2. Mild pericardial effusion One or more dose reduction techniques were used (e.g., Automated exposure control, adjustment of the mA and/or kV according to patient size, use of iterative reconstruction technique). [facility] Neck CT 10/30/24 17:14 IMPRESSION: No acute or significant abnormality in the soft tissues of the neck One or more dose reduction techniques were used (e.g., Automated exposure contro l, adjustment of the mA and/or kV according to patient size, use of iterative reconstruction technique). Reading Location: [facility] Discharge Plan Triage Chief Complaint: Cough ED Provider: Pk Wolf Dx/Rx/DC Orders Prescriptions: No Action polyethylene glycol 3350 17 GM powder in packet 17 g PO DAILY meloxicam 15 MG tablet 15 mg PO DAILY clopidogrel 75 MG tablet 75 mg PO DAILY lorazepam 0.5 MG tablet 0.5 mg PO Q6H PRN (Reason: Anxiety) fluticasone propionate 1 SPRAY spray,suspension 2 spray NASAL DAILY multivitamin with folic acid [Thera] 1 TABLET tablet 1 tab PO DAILY oxybutynin chloride [Ditropan XL] 10 MG tablet extended release 24hr 1 tab PO DAILY simvastatin 80 MG tablet 1 tab PO DAILY Patient Comments: TAKE 1 TABLET AT BEDTIME amitriptyline 25 MG tablet 1 tab PO DAILY Patient Comments: Take 1 tablet by mouth daily at bedtime. omeprazole 20 MG capsule 20 mg PO DAILY Levothyroxine Sodium 112 MCG tablet 112 mcg PO DAILY Colace 50 mg Capsule 50 mg PO BID Primary Care Provider: Nik Shaw Referrals: Nik Shaw MD [Primary Care Provider] - Print Language: Prydeinig
[2024-10-30 16:46] VITALS: BP 161/77; PULSE 84; RESP 17; O2SAT 96
[2024-10-30 16:56] LABS: Hematocrit 46.5 % (40-54); Hemoglobin 15.6 g/dL (13.0-16.5); Mean Corp Hgb Conc 33.5 g/dL (32-36); Mean Corpuscular Hgb 28.8 pg (27.0-32.0); Mean Platelet Vol. 10.4 fl (6.2-12.0); Platelet Count 264 K/mm3 (150-450); RBC Distribution Width CV 14.5 % (11.6-14.6); RBC Distribution Width SD 45.2 fl (35.1-43.9); Red Blood Count 5.41 M/mm3 (4.6-6.2); White Blood Count 10.2 K/mm3 (4.4-11.0)
--- NOTE | 2024-10-30 17:14 | CT_ITS ---
PROCEDURE: CTA CHEST W/WO CONTRAST REASON FOR EXAM: Hemoptysis TECHNIQUE: CTA imaging of the chest with intravenous contrast and 3D reconstructions. CT imaging of the abdomen and pelvis using the same intravenous contrast dose. IV CONTRAST: COMPARISON: None. FINDINGS: CHEST CTA: Hardware: None. Lymph nodes: No mediastinal hilar or axillary lymphadenopathy. Heart: Mild pericardial effusion. No cardiomegaly. Mild coronary artery calcifications RV/LV Diameter Ratio: N/A Thoracic Aorta: No thoracic aortic aneurysm or dissection. Pulmonary Vessels: No large central pulmonary emboli are identified. Contrast timing is suboptimal for evaluation of more distal branches. Most Proximal Level of Embolus (if embolus present): N/A Lungs and Airways: Mild emphysematous changes are present. Pleura: No pleural effusion. No pneumothorax. Hernia: Small hiatal hernia Bones: Bone windows are unremarkable. CT/CTA Chest W/WO Contrast IMPRESSION: 1. Mild diffuse emphysematous changes 2. Mild pericardial effusion One or more dose reduction techniques were used (e.g., Automated exposure contr ol, adjustment of the mA and/or kV according to patient size, use of iterative reconstruction technique). Reading Location: [facility]
--- NOTE | 2024-10-30 17:14 | CT_ITS ---
PROCEDURE: SOFT TISSUE NECK WITH CONTRAST REASON FOR EXAM: Throat pain, history of throat cancer TECHNIQUE: CT of the soft tissues of the neck from the orbits to the upper mediastinum with intravenous contrast. COMPARISON: 04/24/2020 FINDINGS: Airway: Midline and patent. Salivary glands: Unremarkable. Lymph nodes: No cervical lymphadenopathy. Thyroid: Unremarkable. Vasculature: Carotid arteries and internal jugular veins are unremarkable. Orbits: Unremarkable at visualized levels. Paranasal sinuses and mastoids: Grossly clear at visualized levels. Lung apices: Clear. Upper mediastinum: Visualized mediastinum is unremarkable. Bones: Unremarkable. CT/Soft Tissue Neck WITH Contrast IMPRESSION: No acute or significant abnormality in the soft tissues of the neck One or more dose reduction techniques were used (e.g., Automated exposure contr ol, adjustment of the mA and/or kV according to patient size, use of iterative reconstruction technique). Reading Location: [facility]
[2024-10-30 17:19] LABS: Anion Gap 5 (5-15); BUN 19 mg/dL (7-18); BUN/Creat Ratio 23.3 RATIO (10-20); Calcium,Total 9.8 mg/dL (8.5-10.1); Chloride 107 mmol/L (98-107); Creatinine, Serum 0.82 mg/dL (0.70-1.30); EST Glomerular Filtration Rate 99 mL/min (>60); Est Glom Filt Rate - Afr Amer 120 mL/min (>60); Glucose 85 mg/dL (74-106); Potassium 3.7 mmol/L (3.5-5.1); Sodium Level 142 mmol/L (136-145); Troponin-I HS 17 pg/mL (3.0-78.0)
[2024-10-30 18:00] VITALS: BP 170/82; PULSE 64; RESP 11; O2SAT 99
--- NOTE | 2024-10-30 18:27 | ED.RN ---
Patient ambulated to the bathroom with walker.
[2024-10-30 19:34] VITALS: BP 170/82; PULSE 64; RESP 11; TEMP 36.6; O2SAT 99
== END 2024-10-30 19:43 | disposition home or self-care (01) ==
PROVIDERS: Emergency Provider Emergency Medicine; PCP Family Medicine; Visit Provider Emergency Medicine
DX: R04.2 Hemoptysis (principal); G20.A1 Parkinson's disease without dyskinesia, without mention of fluctuations; E78.00 Pure hypercholesterolemia, unspecified; K21.9 Gastro-esophageal reflux disease without esophagitis; F32.A Depression, unspecified; Z85.89 Personal history of malignant neoplasm of other organs and systems; Z86.73 Personal history of transient ischemic attack (TIA), and cerebral infarction without residual deficits; Z79.02 Long term (current) use of antithrombotics/antiplatelets; Z79.899 Other long term (current) drug therapy; F17.200 Nicotine dependence, unspecified, uncomplicated; Z92.3 Personal history of irradiation
CPT/HCPCS: 70491; 71275; 80048; 84484; 85027; 87651; 93005; 99284; Q9967; A4216